=== PATIENT | male | born 1955 | race Caucasian/White ===

== ENCOUNTER 2019-08-27 03:48 | Emergency (ER) | payer OTHER, SELFPAY ==
[~2019-08-27] VITALS: Ht 180.3 cm; Wt 80.7 kg
[2019-08-27 03:49] VITALS: Ht 180.3 cm; Wt 80.7 kg
[2019-08-27 05:10] VITALS: BP 126/70
== END 2019-08-27 05:10 | disposition home or self-care (01) ==
LOC: ED 03:48
DX: U07.1 COVID-19 (principal)
CPT/HCPCS: Q0092; U0003-CS